=== PATIENT | female | born 2000 | race Caucasian/White ===

== ENCOUNTER 2020-10-21 05:09 | Emergency (ER) | payer MEDICAID ==
[~2020-10-21] VITALS: Ht 160 cm; Wt 68.2 kg
[2020-10-21] MEDS ORDERED: ondansetron/PF 4mg/2ml inj IV ONE (05:20)
[2020-10-21] MEDS ORDERED: morphine 4 MG/ML inj SYRINge IV PRN (05:20)
[2020-10-21] MEDS ORDERED: normal saline 1000ML IV soln IVB ONE (05:20)
[2020-10-21 06:22] LABS: BASOPHILS % (AUTO) 0.6 % (0-1); EOSINOPHILS # (AUTO) 0.2 X10'3 (0-0.9); EOSINOPHILS % (AUTO) 2.8 % (0-6); HEMATOCRIT 37.2 % (35.0-45.0); HEMOGLOBIN 12.6 g/dl (12.0-16.0); LYMPHOCYTES # (AUTO) 2.4 X10'3 (1.1-4.8); LYMPHOCYTES % (AUTO) 33.9 % (21-51); MEAN CORPUSCULAR HEMOGLOBIN 30.9 PG (27.0-31.0); MEAN PLATELET VOLUME 8.9 FL (7.4-10.4); MONOCYTES # (AUTO) 0.7 X10'3 (0-0.9); MONOCYTES % (AUTO) 9.9 % (2-12); NEUTROPHILS # (AUTO) 3.7 X10'3 (1.8-7.7); NEUTROPHILS % (AUTO) 52.8 % (42-75); PLATELET COUNT 233 X10'3 (140-440); RED CELL DISTRIBUTION WIDTH 12.6 % (11.5-14.5); WHITE BLOOD COUNT 7.1 X10'3 (4.5-11.0)
[2020-10-21 06:27] LABS: ALANINE AMINOTRANSFERASE 19 U/L (12-78); ALBUMIN/GLOBULIN RATIO 1.1 (1.1-1.5); ALKALINE PHOSPHATASE 63 IU/L (46-116); ANION GAP 8 (8-16); ASPARTATE AMINO TRANSFERASE 13 U/L (10-37); BILIRUBIN,TOTAL 0.2 MG/DL (0.1-1.0); BLOOD UREA NITROGEN 10 MG/DL (7-18); BUN/CREATININE RATIO 14.1 (6.6-38.0); CHLORIDE 105 MMOL/L (99-107); CREATININE 0.71 MG/DL (0.40-0.90); GLUCOSE 108 MG/DL (70-104); LIPASE < 50 U/L (73-393); POTASSIUM 3.5 MMOL/L (3.5-5.1); SODIUM 140 MMOL/L (135-145); TOTAL CARBON DIOXIDE 27.1 MMOL/L (24-32); TOTAL PROTEIN 7.5 G/DL (6.4-8.2); eGFR > 90 ML/MIN
--- NOTE | 2020-10-21 06:29 | NUR ---
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
[2020-10-21 07:01] LABS: BETA HCG,QUANTITATIVE < 1.0 mIU/ml
--- NOTE | 2020-10-21 08:00 | NUR ---
ASSISTED DR GALDAMEZ WITH PELVIS EXAMINATION,PT EXPLAINED THE PROCEDURE BY ME AND DR GALDAMEZ,PT COMPLAINT WITH THE PROCEDURE C/O DISCOMFORT WITH THE EXAMINATION,MD GIVEN VERBAL ORDERS FOR CT SCAN WITHOUT CONTRAST ABDOMEN &PELVIS AND 30 MG IV TORODOL IV ONCE.WILL FOLLOW THE ORDERS.
[2020-10-21] MEDS ORDERED: ketorolac trometh. 30mg/ml inj. IV ONE (08:10)
[2020-10-21 08:29] LABS: CLARITY,URINE CLOUDY (Clear); COLOR,URINE YELLOW (Yellow); GLUCOSE, URINE NEGATIVE (Neg); KETONES,URINE NEGATIVE (Neg); LEUKOCYTE ESTERASE ,URINE TRACE (Neg); NITRITES, URINE POSITIVE (Neg); OCCULT BLOOD,URINE LARGE (Neg); PROTEIN,URINE NEGATIVE (Neg); UROBILINOGEN,URINE 0.2 E.U/dL (0.2-1.0)
[2020-10-21 08:40] LABS: UA COLLECTION TYPE CLN CATCH MIDSTREAM
[2020-10-21 08:44] LABS: BACTERIA,URINE 4+ /HPF (Neg); MUCUS STRANDS FEW /LPF (Neg); RBC,URINE 0-2 /HPF (0-2); SQUAMOUS EPITHELIAL CELL,UR MODERATE /LPF (FEW); WBC,URINE 0-4 /HPF (0-4)
[2020-10-21] MEDS ORDERED: NITR100C6 PO (10:03)
[2020-10-21] MEDS ORDERED: POLY17PO10 PO (10:03)
[2020-10-21 10:29] VITALS: BP 101/62
== END 2020-10-21 10:35 | disposition home or self-care (01) ==
LOC: ER 05:10 → EDSEX 05:10 → ER 10:35
DX: R10.84 Generalized abdominal pain (principal); K59.00 Constipation, unspecified; N39.0 Urinary tract infection, site not specified; Z79.899 Other long term (current) drug therapy
CPT/HCPCS: 36415; 74176; 76830; 76856; 80053; 81001; 83690; 84702; 85025; 87077; 87088; 87186; 93976; 96361; 96374; 96375; 99285; J1885; J2270; J2405; J7030